=== PATIENT | male | born 1985 | race African-American/Black ===

== ENCOUNTER 2016-06-10 16:58 | Emergency (ER) | payer BC ==
--- NOTE | ~2016-06-10 | US115 ---
[facility] A Service [facility] RADIOLOGY TEXT RESULTS PATIENT: GIULIANA DODGE LOCATION: SED : 87 UNIT #: [id number] AGE: [address]: BEN LAUREN PA-C SEX: M ORDER DR: [id number] [place] [id number] E MR#: [id number] Acc #: [id number] NAME: GIULIANA DODGE : 1985 SEX: M STUDY DATE/TIME: 06/10/2016 17:22 UNIT: SED ROOM: STUDY DESCRIPTION: US Scrotum and Contents Attending Physician: Ben Lauren Pa-C Referring Physician: Ben Lauren Pa-C Ordering Physician: Josep Timmons M.D. MEDICAL IMAGING REPORT This report is preliminary unless electronic signature is present. EXAM Ultrasound of scrotum and testes with Doppler. DATE OF EXAM 06/10/2016 HISTORY Right testicle pain and swelling for 1 day. TECHNIQUE Ultrasound examination of the scrotum and testes was performed with rowe-scale and Doppler. FINDINGS No testicular mass or enlargement. Slightly increased right testicular blood flow on color Doppler, as compared to the left, and there is moderate increased Doppler blood flow to the right epididymis, as compared to the left, suggesting right epididymo-orchitis. The left epididymis is normal. Mild scrotal wall thickening on the right could be due to edema or inflammation. Minimal bilateral hydroceles. IMPRESSION 1. Slightly increased blood flow to the right testis and right epididymis as compared to the left suggesting mild right epididymal orchitis. 2. No testicular mass or enlargement. No evidence of testicular torsion. 3. Minimal bilateral hydroceles. Dictated by... [facility] A Service [facility] RADIOLOGY TEXT RESULTS PATIENT: GIULIANA DODGE LOCATION: SED : 87 UNIT #: [id number] AGE: [address]: BEN LAUREN PA-C SEX: M ORDER DR: Jaxson Gooden M.D. THIS IS AN ELECTRONICALLY VERIFIED REPORT Jaxson Gooden M.D. at 06/17/2016 10:34 PM EMILY/adam TD: 06/10/2016 21:40 JOB #: [id number] MEDICAL IMAGING REPORT Page 1 of 1
[~2016-06-10 16:58] MED LIST: ADOXA PAK100 MG PO; BACTRIM DS TABL1 TA1 PO; BENTYL20 MG PO; CEFTIN PO; FLEXERIL10 MG PO; NO MEDICATIONS; VIBRAMYCIN100 M1 PO; ZOFRAN ODT4 MG/UDTAB SL
[2016-06-10 17:08] LABS: BASOPHIL# 0.1 X10e3 (0-0.3); BASOPHIL% 0.7 % (0-2.5); EOSINOPHIL# 0.1 X10e3 (0-0.7); EOSINOPHIL% 0.9 % (0.0-7.0); HEMATOCRIT 41.7 % (38.0-50.0); HEMOGLOBIN 13.5 gm/dL (13.0-16.0); LYMPHOCYTE# 1.6 X10e3 (1.0-3.5); LYMPHOCYTE% 11.6 % (17.0-45.0); MEAN CELL VOLUME 70.7 FL (83-96); MEAN CORPUSCULAR HGB CONC 32.5 g/dL (30-36); MEAN PLATELET VOLUME 9.6 FL (6.5-11.5); MONOCYTE# 0.9 X10e3 (0-1.0); MONOCYTE% 6.6 % (3.0-12.0); NEUTROPHIL# 10.8 X10e3 (1.5-7.1); NEUTROPHIL% 80.2 % (40-75); PLATELET COUNT 190 X10e3 (140-420); RED CELL DISTRIBUTION WIDTH 15.5 % (11.0-15.5); WHITE BLOOD COUNT 13.4 X10e3 (4.0-10.5)
[2016-06-10 17:12] LABS: DIFF IND NO
[2016-06-10 17:24] LABS: BUN/CREATININE RATIO 8.88; CALCIUM SERUM 9.2 mg/dL (8.4-10.2); CREATININE SERUM 0.9 mg/dL (0.6-1.4); GLOM FILT RATE Estimated 133.3 mL/min (>60); POTASSIUM 3.9 mmol/L (3.5-5.1)
[2016-06-10 18:53] LABS: URINE SOURCE CLEAN CATCH
[2016-06-10 18:55] LABS: MICRO INDICATED? YES; URINE APPEARANCE CLEAR; URINE BILIRUBIN NEG (NEG); URINE BLOOD NEG (NEG); URINE COLOR YELLOW; URINE GLUCOSE NEG (NORM); URINE KETONE NEG (NEG); URINE LEUKOCYTE ESTERASE TRACE (NEG); URINE NITRATE NEG (NEG); URINE PROTEIN NEG (NEG); URINE UROBILINOGEN 0.2 MG/DL (NORM)
[2016-06-10 18:56] LABS: CULTURE INDICATED? NO; URINE BACTERIA NEG (NEG); URINE RBC 0-2 /[HPF] (0-2); URINE SQUAMOUS EPITHELIAL CELL FEW /[HPF]
[2016-06-14 11:48] LABS: CHLAMYDIA TRACH Not Detected (Not Detected); N GONOR Not Detected (Not Detected)
== END 2016-06-10 19:12 | disposition home or self-care (01) ==
LOC: SED 16:58
PROVIDERS: Physician Assistant
DX: N45.3 Epididymo-orchitis (principal); F17.200 Nicotine dependence, unspecified, uncomplicated
CPT/HCPCS: 36415; 76870; 80048; 81003; 85025; 87491; 87591; 93976; 96374; 96375; 99284; J0696; J2270; J2405